=== PATIENT | male | born 1990 | race Caucasian/White ===

== ENCOUNTER 2020-01-20 20:58 | Emergency (ER) | payer OTHER ==
[~2020-01-20] VITALS: Ht 167.6 cm; Wt 95.3 kg
[2020-01-20 21:01] VITALS: BP_SYST 139
--- NOTE | 2020-01-20 21:01 | NUR ---
Patient to ER bed 7 to gown for evaluation. Side rails up. Report given to Roger BRYAN.
--- NOTE | 2020-01-20 21:08 | NUR ---
DR MILLER AT5 BEDSIDE TO ASSESS
--- NOTE | 2020-01-20 21:11 | NUR ---
ANITRA TO ASSUME CARE. PT HERE FOR C/O LT FLANK PAIN FOR 3-4 HOURS. INCREASE PAIN WITH INHALATION. ALERT, CALM, RESP UNLABORED, SKIN WARM AND DRY. COMMUNICATES CLEARLY IN FULL COMPLETE SENTENCES, DENIES CP/SOB. NO FEVER/CHILLS
--- NOTE | 2020-01-20 21:16 | NUR ---
OFF TO CT ABD PELVIS. STEADY GAIT NO DISTRESS
--- NOTE | 2020-01-20 21:23 | NUR ---
BACK FROM CT. NO DISTRESS
--- NOTE | 2020-01-20 21:51 | NUR ---
VSS, STATED PAIN HAS SUBSIDED, RESP UNLABORED, DENIES NAUSEA
--- NOTE | 2020-01-20 22:20 | NUR ---
Patient given written and verbal discharge instructions and verbalizes understanding. ER MD discussed with patient the results and treatment provided. Patient in stable condition. ID arm band removed. Patient educated on pain management and to follow up with PMD. Pain Scale 2/10 Opportunity for questions provided and answered.
[2020-01-20 22:21] VITALS: BP_SYST 127
== END 2020-01-20 22:20 | disposition home or self-care (01) ==
LOC: SED 20:58
DX: R10.9 Unspecified abdominal pain (principal)
CPT/HCPCS: 99284

== ENCOUNTER 2023-01-11 10:35 | Emergency (ER) | payer BC, OTHER ==
[~2023-01-11] VITALS: Ht 167.6 cm; Wt 113.4 kg
[2023-01-11 10:49] VITALS: BP_SYST 124; PULSE 82; RESP 16; TEMP 97.7; O2SAT 97
[2023-01-11] MEDS ORDERED: KETOROLAC TROMETHAMINE 60 MG/2 ML VIAL IM ONE (11:15)
[2023-01-11 11:30] LABS: BASOPHILS % (AUTO) 0.4 % (0.0-2.0); EOSINOPHILS # (AUTO) 0.1 K/uL (0.0-0.4); EOSINOPHILS % (AUTO) 1.2 % (0.0-4.0); HEMATOCRIT 43.8 % (36-54); LYMPHOCYTES # (AUTO) 2.1 K/uL (1.0-5.5); LYMPHOCYTES % (AUTO) 25.4 % (20.5-51.5); MEAN CORPUSCULAR HEMOGLOBIN 27 pg (27-31); MEAN CORPUSCULAR HGB CONC 32 % (32-36); MEAN CORPUSCULAR VOLUME 83 fL (79.0-98.0); MONOCYTES # (AUTO) 0.5 K/uL (0.0-1.0); MONOCYTES % (AUTO) 6.2 % (1.7-9.3); NEUTROPHILS # (AUTO) 5.6 K/uL (1.8-7.7); NEUTROPHILS % (AUTO) 66.8 % (40.0-70.0); PLATELET COUNT (AUTO) 225 K/uL (130-430); RED BLOOD CELL COUNT(AUTO) 5.26 MIL/uL (4.2-6.2); RED CELL DISTRIBUTION WIDTH 14.1 % (9.0-15.0); WHITE BLOOD COUNT (AUTO) 8.4 K/uL (4.8-10.8)
[2023-01-11 11:57] LABS: CALCIUM 8.6 mg/dL (8.4-11.0); CREATININE 0.94 mg/dL (0.55-1.30); POTASSIUM 3.9 mmol/L (3.5-5.1)
[2023-01-11] MEDS ORDERED: TRAM50TA2 PO (12:01)
[2023-01-11] MEDS ORDERED: IBUP-1971 PO (12:01)
[2023-01-11 12:11] LABS: ALBUMIN 3.8 g/dL (3.4-4.8); TOTAL BILIRUBIN 0.6 mg/dL (0.0-1.0); TOTAL PROTEIN, SERUM 7.5 g/dL (6.4-8.3)
[2023-01-11 12:30] VITALS: BP_SYST 137; PULSE 94; RESP 16; TEMP 98.3; O2SAT 96
== END 2023-01-11 12:33 | disposition home or self-care (01) ==
LOC: SED 10:35
DX: G89.29 Other chronic pain (principal); M54.50 Low back pain, unspecified; Z79.899 Other long term (current) drug therapy
CPT/HCPCS: 99285; 74176; 80053; 82150; 83690; 85025; 36415; 76376; 96372; 82397; J1885